=== PATIENT | male | born 1940 | race Caucasian/White ===

== ENCOUNTER → 2017-09-10 | Outpatient (CLI) | payer OTHER ==
[~2017-09-10] MED LIST: ALDACTONE25 MG PO; ALLOPURINOL 10100 M1 PO; ASPIRIN325 PO; BYSTOLIC 5 MG5 MG PO; BYSTOLIC10 MG PO; COREG12.5 MG PO; COZAAR 25 MG TA25 M1 PO; COZAAR 25 MG TA25 MG PO; COZAAR 50 MG TA50 M2 PO; DEMADEX20 MG PO; KLOR-CON 1010 MEQ PO; LASIX 40 MG TAB40 M2 PO; ONE DAILY FOR1 EAC2 PO; ONE DAILY FOR1 EACH PO; PACERONE 200 M200 M1 PO; TYLENOL325 MG PO
== END ==
LOC: HYPER 06:40
DX: L03.116 Cellulitis of left lower limb (principal); L03.115 Cellulitis of right lower limb; I50.22 Chronic systolic (congestive) heart failure; N18.4 Chronic kidney disease, stage 4 (severe); M19.90 Unspecified osteoarthritis, unspecified site; Z95.0 Presence of cardiac pacemaker; Z87.891 Personal history of nicotine dependence

== ENCOUNTER 2017-09-21 13:41 | Inpatient (IN) | payer OTHER ==
[~2017-09-21] VITALS: Ht 177.8 cm; Wt 99.0 kg
--- NOTE | ~2017-09-21 | HC ---
[facility] [place] [address] CONSULTATION Name: TANK COX Room #: 432-P ADM IN M.R.#: [id number] Admission: 09/21/17 Attend Phys: Darion Jose MD Discharge: Date of : 41 Report #: [id number] THIS REPORT FOR: //name// CC: Dwaine Jose REASON FOR CONSULTATION: Acute kidney injury. HISTORY OF PRESENT ILLNESS: This is a 77-year-old with known ischemic cardiomyopathy and an ejection fraction of 20%. He is also known to have cardiorenal syndrome. He presented to the emergency room yesterday after a fall. This has happened on Thursday. His baseline creatinine used to be around 2. He was supposed to be seen in the clinic. His creatinine has been creeping up all the way to mid-5 range with aggressive diuresis. When he presented yesterday, he was found to have a creatinine of 7. He reported to taking doxycycline and ibuprofen in the last few days. He does have bilateral lower extremity edema with extensive cellulitic changes. We have tried to avoid dialysis in the past; however, he is agreeable to pursuing that. I explained for him that this could be temporary. PAST MEDICAL HISTORY: 1. Hypertension. 2. Heart failure with ejection fraction of 20%. 3. Status post pacemaker insertion. MEDICATIONS: 1. . 2. Aspirin. 3. Spironolactone. 4. Torsemide. 5. Colchicine. 6. Recent ibuprofen ingestions. SOCIAL HISTORY: No drug or alcohol abuse. FAMILY HISTORY: Significant for coronary artery disease. REVIEW OF SYSTEMS: GENERAL: No fever or chills. CARDIOVASCULAR: No chest pain or palpitation. PULMONARY: No cough or hemoptysis. GASTROINTESTINAL: No nausea or vomiting. GENITOURINARY: No frequency, no urgency. MUSCULOSKELETAL: Shoulder pain post fall. SKIN: Significant for lower extremity cellulitic changes. PHYSICAL EXAMINATION: [facility] [address] [place] [address] CONSULTATION Name: TANK COX Room #: 432-P [facility] IN [facility]#: [id number] Admission: 09/21/17 Attend Phys: Darion Jose MD Discharge: Date of : 41 Report #: [id number] GENERAL: He is alert, oriented, in no apparent distress. VITAL SIGNS: Blood pressure is 102/57. HEAD AND NECK: No jugular venous distention. No bruit or thyromegaly. CHEST: Decreased air entry bilaterally, with crackles. CARDIOVASCULAR: No rub detected. ABDOMEN: Soft, nontender with no hepatosplenomegaly. EXTREMITIES: Lower extremities significant for edema and cellulitic changes. LABORATORY DATA: Laboratory values reviewed. Sodium 130, potassium 3.4. BUN is 203, down from 212; creatinine is ____. AST is elevated at 311. ALT is elevated at 375. ASSESSMENT, IMPRESSION AND PLAN: 1. Acute kidney injury. 2. Chronic kidney disease. 3. Cardiomyopathy. 4. Status post fall. 5. The acute kidney injury is likely due to his recent nonsteroidal anti-inflammatory medications intake. His baseline creatinine is around 2.2. Given his volume issues and the significant elevation of his BUN, we will initiate temporary dialysis. 6. Avoid nephrotoxins. 7. Management of his fall deferred to primary care physicians. 8. Management of the cardiac issues will be handled by his Cardiology team. <ELECTRONICALLY SIGNED> By: Zbigniew Carl MD 09/23/17 0817 0836 1200 Zbigniew Carl MD /nt
--- NOTE | ~2017-09-21 | 2DMMODE ---
[facility] [address] [place] [address] 2 D/M-MODE ECHOCARDIOGRAM Name: TANK COX Room #: 432-P [facility] IN ..#: [id number] Admission: 09/21/17 Attend Phys: Darion Jose, Discharge: Date of : 42 Date of Service: 09/22/17 1057 Report #: [id number] THIS REPORT FOR: //name// ADDENDUM APPROVED REPORT Study performed: 09/22/2017 09:59:44 EXAM: Comprehensive 2D, Doppler, and color-flow Echocardiogram Patient Location: Bedside Room #: 432 Status: routine BSA: 2.18 HR: 77 bpm BP: 102/57 mmHg Rhythm: Paced Other Information Study Quality: Adequate Indications Elevated BNP. Hx: Pacemaker, cardiomyopathy, CHF, HTN 2D Dimensions RVDd: 45.11 mm LVEF(%): 27.96 (>50%) IVSd: 11.14 (7-11mm) LVOT Diam: 21.91 (18-24mm) LVDd: 62.56 mm PWd: 10.96 (7-11mm) Ascending Ao: 35.66 (22-36mm) LVDs: 54.22 (25-40mm) Aortic Root: 40.31 mm Cosme's LVEF: 27.96 % Volumes Left Atrial Volume (Systole) Single Plane 4CH: 82.89 mL Single Plane 2CH: 113.05 mL LA ESV Index: 49.00 mL/m2 Aortic Valve AoV Peak Piero.: 1.75 m/s AO Peak Gr.: 12.25 mmHg LVOT Max P.46 mmHg LVOT Max V: 1.17 m/s RADHA Vmax: 2.51 cm2 Mitral Valve E/A Ratio: 1.5 MV Decel. Time: 126.25 ms [facility] Timeline [facility] / [place] [address] 2 D/M-MODE ECHOCARDIOGRAM Name: TANK COX Room #: 432-P [facility] IN ..#: [id number] Admission: 09/21/17 Attend Phys: Darion Jose, Discharge: Date of : 42 Date of Service: 09/22/17 1057 Report #: [id number] E Max Piero.: 1.15 m/s MV A Piero.: 0.79 m/s MV PHT: 36.61 ms IVRT: 62.28 ms Pulmonary Valve PV Peak Piero.: 0.89 m/s PV Peak Gr.: 3.19 mmHg Pulmonary Vein P Vein S: 0.65 m/s P Vein D: 0.71 m/s P Vein S/D Ratio: 0.92 Tricuspid Valve TR Peak Piero.: 3.15 m/s RAP Estimate: 5.00 mmHg TR Peak Gr.: 39.75 mmHg PA Pressure: 45.00 mmHg Left Ventricle Left ventricle is moderately dilated. There is normal left ventricular wall thickness. Left ventricular systolic function is moderate to severely decreased. LVEF is 30%.inf wall akinetic Moderate diastolic dysfunction is present (pseudonormal filling). Right Ventricle Right ventricle is dilated. Right ventricle is mildly hypokinetic. Pacemaker lead is present in the right ventricle. Atria Left atrium is moderately dilated. Right atrium is mildly dilated. Aortic Valve Aortic valve is calcified. Mild aortic regurgitation. There is no aortic valvular stenosis. Mitral Valve The mitral valve is normal in structure. Mild mitral annular calcification. Moderate mitral regurgitation. No evidence of mitral valve stenosis. Tricuspid Valve The tricuspid valve is normal in structure. Mild tricuspid regurgitation. Estimated PAP is 45-50mmHg. [address] [address] 2 D/M-MODE ECHOCARDIOGRAM Name: BROOKETANK Dorcas Room #: 432-P [facility] IN [facility]#: [id number] Admission: 09/21/17 Attend Phys: Darion Jose, Discharge: Date of : 42 Date of Service: 09/22/17 1057 Report #: [id number] Pulmonic Valve The pulmonary valve is normal in structure. Trace pulmonic regurgitation. Great Vessels Aortic root is dilated at 4.0cm. The ascending aorta is normal in size. IVC is normal in size and collapses >50% with inspiration. Pericardium There is no pericardial effusion. <Conclusion> Left ventricle is moderately dilated. Left ventricular systolic function is moderate to severely decreased. LVEF is25- 30%.inf walll worse Moderate diastolic dysfunction is present (pseudonormal filling). Right ventricle is dilated. Right ventricle is mildly hypokinetic. Left atrium is moderately dilated. Right atrium is mildly dilated. Aortic valve is calcified. Mild aortic regurgitation. The mitral valve is normal in structure. Mild mitral annular calcification. Moderate mitral regurgitation. Mild tricuspid regurgitation. Estimated PAP is 45-50mmHg. Aortic root is dilated at 4.0cm. There is no pericardial effusion. no signif change from prior <ELECTRONICALLY SIGNED> By: Holland Young MD, FACC 09/22/171056 56 56 Holland Young MD, FACC /INF
[2017-09-21 13:41] VITALS: BP 101/46
[2017-09-21] MEDS ORDERED: COLCHICINE0.6 MG PO (13:55)
[2017-09-21] MEDS ORDERED: TUMERIC PO (13:56)
[2017-09-21] MEDS ORDERED: DEMADEX20 MG PO (13:57)
[2017-09-21 15:03] LABS: MCH 31.3 pg (26.0-34.0); MCHC 33.3 g/dL (28.0-37.0); PLATELET COUNT 221 thou/uL (150-400); RBC 3.51 mil/uL (4.50-6.00); RDW 17.6 % (10.5-14.5); WBC 17.4 thou/uL (4.0-11.0)
[2017-09-21 15:14] LABS: CALCIUM 9.1 mg/dL (8.5-10.1); CREATININE 7.4 mg/dL (0.7-1.3); POTASSIUM 3.3 mmol/L (3.5-5.1)
[2017-09-21 15:16] LABS: ALBUMIN 2.5 g/dL (3.4-5.0); TOTAL BILIRUBIN 2.3 mg/dL (<0.1-1.0); TOTAL PROTEIN 7.2 g/dL (6.4-8.2)
[2017-09-21 15:24] LABS: ABSOLUTE NEUTROPHILS 15.8 thou/uL (1.4-8.2)
[2017-09-21 15:25] LABS: ANISOCYTOSIS 1+; LARGE PLATELETS SEVERAL; OVALOCYTES OCCASIONAL; TARGET CELLS OCCASIONAL
[2017-09-21 15:39] LABS: INR 1.2
[2017-09-21 15:52] LABS: URINE BILIRUBIN NEGATIVE (Negative); URINE BLOOD TRACE (Negative); URINE CLARITY CLEAR; URINE COLOR YELLOW; URINE GLUCOSE-RANDOM* NEGATIVE (Negative); URINE KETONES NEGATIVE (Negative); URINE LEUKOCYTES-REFLEX NEGATIVE (Negative); URINE NITRITE-REFLEX NEGATIVE (Negative); URINE PROTEIN (DIPSTICK) NEGATIVE (Negative); URINE SPECIFIC GRAVITY 1.015 (1.005-1.035); URINE UROBILINOGEN 0.2 E.U./dl (0.2-1.0)
[2017-09-21 16:52] VITALS: BP 104/68
[2017-09-21 17:40] VITALS: BP 104/68
[2017-09-21 19:35] VITALS: BP 109/44
[2017-09-21 23:40] VITALS: BP 100/54
[2017-09-22 04:14] VITALS: BP 94/49
[2017-09-22 05:32] LABS: HEMATOCRIT 32.1 % (42.0-52.0); HEMOGLOBIN 10.5 gm/dL (14.0-18.0); MCH 30.8 pg (26.0-34.0); MCHC 32.7 g/dL (28.0-37.0); MCV 94.3 fL (80.0-100.0); RDW 17.8 % (10.5-14.5)
[2017-09-22 05:50] LABS: ALBUMIN 2.1 g/dL (3.4-5.0); CALCIUM 8.9 mg/dL (8.5-10.1); CREATININE 6.8 mg/dL (0.7-1.3); MAGNESIUM 2.6 mg/dL (1.8-2.4); POTASSIUM 3.4 mmol/L (3.5-5.1); TOTAL BILIRUBIN 2.7 mg/dL (<0.1-1.0); TOTAL PROTEIN 6.4 g/dL (6.4-8.2)
[2017-09-22 07:05] VITALS: BP 102/57
[2017-09-22 07:22] LABS: ABSOLUTE NEUTROPHILS 14.6 thou/uL (1.4-8.2)
[2017-09-22 07:23] LABS: ANISOCYTOSIS 1+; HYPOCHROMASIA SLIGHT; OVALOCYTES 1+; POIKILOCYTOSIS 1+; POLYCHROMASIA 1+; TARGET CELLS OCCASIONAL
[2017-09-22 07:33] LABS: LARGE PLATELETS FEW; PLATELET COUNT 236 thou/uL (150-400)
[2017-09-22 15:25] VITALS: BP 98/54
[2017-09-22 20:43] VITALS: BP 106/50
[2017-09-22 23:54] VITALS: BP 108/54
[2017-09-23 04:37] VITALS: BP 96/47
[2017-09-23 05:35] LABS: CALCIUM 9.5 mg/dL (8.5-10.1); PHOSPHORUS 3.9 mg/dL (2.5-4.9); POTASSIUM 3.2 mmol/L (3.5-5.1)
[2017-09-23 05:36] LABS: CREATININE 4.4 mg/dL (0.7-1.3)
[2017-09-23 05:48] LABS: HEMATOCRIT 33.9 % (42.0-52.0); HEMOGLOBIN 11.2 gm/dL (14.0-18.0); MCH 31.4 pg (26.0-34.0); MCHC 33.2 g/dL (28.0-37.0); MCV 94.6 fL (80.0-100.0); RBC 3.58 mil/uL (4.50-6.00); RDW 18.2 % (10.5-14.5)
[2017-09-23 07:30] VITALS: BP 104/49
[2017-09-23 10:08] LABS: HEPATITIS B SURFACE AG Negative (Negative)
[2017-09-23 15:32] VITALS: BP 83/48
[2017-09-23 20:00] VITALS: BP 91/52
[2017-09-24 04:04] VITALS: BP 109/59
[2017-09-24 10:33] LABS: HEMATOCRIT 33.5 % (42.0-52.0); HEMOGLOBIN 10.8 gm/dL (14.0-18.0); MCHC 32.3 g/dL (28.0-37.0); MCV 95.9 fL (80.0-100.0); PLATELET COUNT 248 thou/uL (150-400); RDW 17.8 % (10.5-14.5); WBC 11.9 thou/uL (4.0-11.0)
[2017-09-24 10:42] LABS: CALCIUM 8.8 mg/dL (8.5-10.1); CREATININE 3.4 mg/dL (0.7-1.3); POTASSIUM 3.4 mmol/L (3.5-5.1)
[2017-09-24 10:49] LABS: ABSOLUTE NEUTROPHILS 10.6 thou/uL (1.4-8.2); LARGE PLATELETS FEW; PLATELET ESTIMATE NORMAL
[2017-09-24 19:54] VITALS: BP 122/58
[2017-09-25 04:52] VITALS: BP 107/52
[2017-09-25 05:23] LABS: ALBUMIN 1.9 g/dL (3.4-5.0); CALCIUM 8.7 mg/dL (8.5-10.1); CREATININE 3.4 mg/dL (0.7-1.3); PHOSPHORUS 2.7 mg/dL (2.5-4.9)
[2017-09-25 05:37] LABS: POTASSIUM 4.4 mmol/L (3.5-5.1)
[2017-09-25 08:01] VITALS: BP 127/53
[2017-09-25 16:32] VITALS: BP 114/58
[2017-09-25 19:45] VITALS: BP 104/58
[2017-09-26 03:42] LABS: HEMATOCRIT 33.5 % (42.0-52.0); HEMOGLOBIN 11.1 gm/dL (14.0-18.0); MCH 31.5 pg (26.0-34.0); MCHC 33.1 g/dL (28.0-37.0); MCV 95.1 fL (80.0-100.0); RBC 3.53 mil/uL (4.50-6.00); RDW 17.9 % (10.5-14.5); WBC 11.7 thou/uL (4.0-11.0)
[2017-09-26 03:53] LABS: ALBUMIN 1.9 g/dL (3.4-5.0); CREATININE 3.6 mg/dL (0.7-1.3); POTASSIUM 4.1 mmol/L (3.5-5.1); TOTAL BILIRUBIN 4.1 mg/dL (<0.1-1.0); TOTAL PROTEIN 6.5 g/dL (6.4-8.2)
[2017-09-26 04:20] VITALS: BP 105/51
[2017-09-26 07:35] VITALS: BP 110/61
[2017-09-26 20:15] VITALS: BP 96/45
[2017-09-27 04:32] VITALS: BP 103/53
[2017-09-27 06:55] LABS: HEMATOCRIT 32.7 % (42.0-52.0); HEMOGLOBIN 10.8 gm/dL (14.0-18.0); MCH 31.4 pg (26.0-34.0); MCHC 33.1 g/dL (28.0-37.0); MCV 94.7 fL (80.0-100.0); RBC 3.46 mil/uL (4.50-6.00); RDW 17.7 % (10.5-14.5); WBC 11.6 thou/uL (4.0-11.0)
[2017-09-27 07:13] LABS: ALBUMIN 1.9 g/dL (3.4-5.0); CREATININE 3.6 mg/dL (0.7-1.3); PHOSPHORUS 3.4 mg/dL (2.5-4.9); POTASSIUM 3.9 mmol/L (3.5-5.1)
[2017-09-27 09:06] VITALS: BP 92/42
[2017-09-27 19:59] VITALS: BP 104/56
[2017-09-28 03:20] VITALS: BP 166/63
[2017-09-28 04:10] VITALS: BP 123/53
[2017-09-28 06:12] LABS: HEMATOCRIT 31.7 % (42.0-52.0); HEMOGLOBIN 10.6 gm/dL (14.0-18.0); MCH 31.7 pg (26.0-34.0); MCHC 33.6 g/dL (28.0-37.0); MCV 94.3 fL (80.0-100.0); RBC 3.36 mil/uL (4.50-6.00); WBC 12.8 thou/uL (4.0-11.0)
[2017-09-28 06:29] LABS: ALBUMIN 1.8 g/dL (3.4-5.0); CALCIUM 8.8 mg/dL (8.5-10.1); CREATININE 3.6 mg/dL (0.7-1.3); PHOSPHORUS 3.9 mg/dL (2.5-4.9); POTASSIUM 3.7 mmol/L (3.5-5.1)
[2017-09-28 06:43] VITALS: BP 123/53
[2017-09-28 08:37] VITALS: BP 103/41
[2017-09-28 16:09] VITALS: BP 108/84
[2017-09-28 19:36] VITALS: BP 103/49
[2017-09-29 04:05] VITALS: BP 117/60
[2017-09-29 07:23] VITALS: BP 106/45
[2017-09-29 09:00] VITALS: BP 93/42
[2017-09-29 11:18] VITALS: BP 93/42
[2017-09-29 11:50] LABS: HEMOGLOBIN 10.8 gm/dL (14.0-18.0); MCH 32.6 pg (26.0-34.0); MCHC 33.8 g/dL (28.0-37.0); MCV 96.3 fL (80.0-100.0); RBC 3.32 mil/uL (4.50-6.00); RDW 18.1 % (10.5-14.5); WBC 12.7 thou/uL (4.0-11.0)
[2017-09-29 12:04] LABS: ALBUMIN 1.8 g/dL (3.4-5.0); CALCIUM 8.5 mg/dL (8.5-10.1); CREATININE 3.5 mg/dL (0.7-1.3); MAGNESIUM 1.8 mg/dL (1.8-2.4); POTASSIUM 3.8 mmol/L (3.5-5.1); TOTAL BILIRUBIN 2.3 mg/dL (<0.1-1.0); TOTAL PROTEIN 6.5 g/dL (6.4-8.2)
[2017-09-29] MEDS ORDERED: AMLACTIN400 GM TOP (13:00)
[2017-09-29] MEDS ORDERED: HEPARIN SO5000 UNIT/ SUBQ (13:00)
[2017-09-29] MEDS ORDERED: NITROGLYCERIN0.4 MG SUBLING (13:00)
[2017-09-29] MEDS ORDERED: MIRALAX17 GM PO (13:00)
[2017-09-29] MEDS ORDERED: DEMADEX20 MG PO (13:00)
[2017-09-29] MEDS ORDERED: CEFUROXIME500 MG PO (13:32)
== END 2017-09-29 16:50 | DRG 673 ==
LOC: ER 13:41 → 4E 16:23 → EROBS 16:23 → 4E 18:28
PROVIDERS: Hospitalist; Internal Medicine; Internal Medicine Nephrology; Nurse Practitioner; Physician Assistant
PROC: 2W3AX1Z Immobilization of Right Upper Arm using Splint (ICD-10-PCS; principal; 2017-09-21)
PROC: B5181ZA Fluoroscopy of Superior Vena Cava using Low Osmolar Contrast, Guidance (ICD-10-PCS; 2017-09-22)
PROC: 02HV33Z Insertion of Infusion Device into Superior Vena Cava, Percutaneous Approach (ICD-10-PCS; 2017-09-22)
PROC: 0JH63XZ Insertion of Tunneled Vascular Access Device into Chest Subcutaneous Tissue and Fascia, Percutaneous Approach (ICD-10-PCS; 2017-09-22)
PROC: B548ZZA Ultrasonography of Superior Vena Cava, Guidance (ICD-10-PCS; 2017-09-22)
PROC: 5A1D70Z Performance of Urinary Filtration, Intermittent, Less than 6 Hours Per Day (ICD-10-PCS; 2017-09-22)
PROC: 5A1D70Z Performance of Urinary Filtration, Intermittent, Less than 6 Hours Per Day (ICD-10-PCS; 2017-09-23)
PROC: 5A1D70Z Performance of Urinary Filtration, Intermittent, Less than 6 Hours Per Day (ICD-10-PCS; 2017-09-24)
DX: N17.0 Acute kidney failure with tubular necrosis (principal); G93.41 Metabolic encephalopathy; I50.23 Acute on chronic systolic (congestive) heart failure; E87.1 Hypo-osmolality and hyponatremia; E44.0 Moderate protein-calorie malnutrition; I42.9 Cardiomyopathy, unspecified; M62.82 Rhabdomyolysis; L03.116 Cellulitis of left lower limb; L03.115 Cellulitis of right lower limb; B19.10 Unspecified viral hepatitis B without hepatic coma; I13.2 Hypertensive heart and chronic kidney disease with heart failure and with stage 5 chronic kidney disease, or end stage renal disease; M10.9 Gout, unspecified; E87.6 Hypokalemia; M19.011 Primary osteoarthritis, right shoulder; S40.011A Contusion of right shoulder, initial encounter; N18.6 End stage renal disease; L30.9 Dermatitis, unspecified; R26.9 Unspecified abnormalities of gait and mobility; S46.011A Strain of muscle(s) and tendon(s) of the rotator cuff of right shoulder, initial encounter; T39.395A Adverse effect of other nonsteroidal anti-inflammatory drugs [NSAID], initial encounter; W18.39XA Other fall on same level, initial encounter; Y93.89 Activity, other specified; Y99.8 Other external cause status; Y92.89 Other specified places as the place of occurrence of the external cause; Z95.810 Presence of automatic (implantable) cardiac defibrillator; Z87.891 Personal history of nicotine dependence; Z79.82 Long term (current) use of aspirin; Z79.899 Other long term (current) drug therapy; Z23 Encounter for immunization; Z88.8 Allergy status to other drugs, medicaments and biological substances; Z82.49 Family history of ischemic heart disease and other diseases of the circulatory system
CPT/HCPCS: 10183; 32100

== ENCOUNTER → 2017-10-21 | Outpatient (CLI) | payer OTHER ==
[~2017-10-21] MED LIST changes: +AMLACTIN400 GM TOP; +CEFUROXIME500 MG PO; +COLCHICINE0.6 MG PO; +HEPARIN SO5000 UNIT/ SUBQ; +MIRALAX17 GM PO; +NITROGLYCERIN0.4 MG SUBLING; +TUMERIC PO
== END ==
LOC: HYPER 09-23 10:19
DX: L03.116 Cellulitis of left lower limb (principal); L03.115 Cellulitis of right lower limb; N18.4 Chronic kidney disease, stage 4 (severe); I50.22 Chronic systolic (congestive) heart failure; M19.90 Unspecified osteoarthritis, unspecified site; Z87.891 Personal history of nicotine dependence; Z95.0 Presence of cardiac pacemaker

== ENCOUNTER → 2017-11-11 | Outpatient (CLI) | payer OTHER | LOC: HYPER 06:57 | DX: L03.116 Cellulitis of left lower limb (principal); L03.115 Cellulitis of right lower limb; I50.22 Chronic systolic (congestive) heart failure; N18.4 Chronic kidney disease, stage 4 (severe); M19.90 Unspecified osteoarthritis, unspecified site; Z95.0 Presence of cardiac pacemaker; Z87.891 Personal history of nicotine dependence ==

== ENCOUNTER → 2017-11-23 | Outpatient (CLI) | payer OTHER | LOC: HYPER 06:52 | DX: S81.801D Unspecified open wound, right lower leg, subsequent encounter (principal); S81.802D Unspecified open wound, left lower leg, subsequent encounter; L03.116 Cellulitis of left lower limb; L03.115 Cellulitis of right lower limb; N18.4 Chronic kidney disease, stage 4 (severe); I50.22 Chronic systolic (congestive) heart failure; M19.90 Unspecified osteoarthritis, unspecified site; M10.9 Gout, unspecified; Z95.0 Presence of cardiac pacemaker; Z87.891 Personal history of nicotine dependence; X58.XXXD Exposure to other specified factors, subsequent encounter ==

== ENCOUNTER 2017-12-31 15:51 | Inpatient (IN) | payer OTHER ==
[~2017-12-31] VITALS: Ht 188 cm; Wt 92.6 kg
--- NOTE | ~2017-12-31 | HC ---
[facility] [place] [address] CONSULTATION Name: BROOKETANK Dorcas Room #: 213-P [facility] IN ..#: [id number] Admission: 12/31/17 Attend Phys: Sherine Hernandes Discharge: 01/05/18 Date of : 41 Report #: [id number] THIS REPORT FOR: //name// CC: Dwaine Hernandes DATE OF SERVICE: 01/01/2018 CHIEF COMPLAINT: Bilateral lower extremity ulcerations. HISTORY OF PRESENT ILLNESS: This is a 77-year-old male patient who has been seen in the wound clinic in the past. He has a history of congestive heart failure, bilateral lower extremity edema. He has bilateral compression bandages in place at this time. The patient denies pain, states he does not have any open wounds. He is reluctant to have his wrappings taken off. CURRENT MEDICATIONS: Include amiodarone, ammonium lactate, cefuroxime, heparin, nitroglycerin, polyethylene glycol, spironolactone, torsemide. ALLERGIES: NOY INHIBITORS AND CARVEDILOL. FAMILY HISTORY: Noncontributory. SOCIAL HISTORY: Positive for cigarettes in the past. Negative for alcohol use. REVIEW OF SYSTEMS: CONSTITUTIONAL: The patient denies fever, chills, weight loss. NEUROLOGICAL: The patient denies focal weakness. ENT: The patient denies earache, nasal drainage or sore throat. CARDIOVASCULAR: The patient denies chest pain or palpitations or diaphoresis. PULMONARY: The patient denies cough or shortness of breath. GASTROINTESTINAL: The patient denies nausea or vomiting, diarrhea or abdominal pain. ORTHOPEDIC: The patient has his lower extremities wrapped, denies pain in that area. Other systems are negative in a 14-point review of systems. PHYSICAL EXAMINATION: VITAL SIGNS: At this time include pulse 66, respiratory rate of 22, temperature 97.6, blood pressure 100/64. GENERAL: This is a chronically ill-appearing male patient who appears to be in minimal distress. HEENT: Head is normocephalic. Nose and throat clear. NECK: Supple. LUNGS: Clear. ABDOMEN: Soft. [facility] [address] [place] [address] CONSULTATION Name: TANK COX Room #: 213-P [facility] IN M.R.#: [id number] Admission: 12/31/17 Attend Phys: Sherine Hernandes Discharge: 01/05/18 Date of : 41 Report #: [id number] EXTREMITIES: Lower extremities demonstrate skin to be warm, pink, and dry. Wraps are removed. He has minimal edema, really no open ulcerations, or evidence of cellulitis at this time. CLINICAL IMPRESSION: History of bilateral lower extremity edema that seems to be well controlled. RECOMMENDATIONS: We will recommend topical moisturizer such as Eucerin or AmLactin cream followed by Tubigrip stockings bilaterally. These can be changed out on a daily basis. Recommend elevation of lower extremities. I appreciate being asked to see him in consultation. <ELECTRONICALLY SIGNED> By: Talat Ford MD 01/07/18 1516 1202 2123 Talat Ford MD /nt
--- NOTE | ~2017-12-31 | EKG ---
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: SUSANA : 1940 Requested By: María Rdz Order Number: [id number] MD: Hero Powell Measurements Intervals [place] Rate: 82 P: 61 ND: 160 QRS: 242 QRSD: 219 T: 169 QT: 505 QTc: 590 Interpretive Statements Atrial-sensed ventricular-paced rhythm No further analysis attempted due to paced rhythm Artifact in lead(s) I,II,aVR,aVL Compared to ECG 11/15/2015 07:49:10 No significant change was found Electronically Signed On 01-01-2018 8:49:06 CDT by Hero Powell [email or web address] <ELECTRONICALLY SIGNED> By: Hero Powell MD, [facility] 01/01/18 0849 1604 1604 Hero Powell MD, [facility] /EPI
--- NOTE | ~2017-12-31 | HC ---
[facility] [place] [address] CONSULTATION Name: BROOKETANK Dorcas Room #: 213-P [facility] IN .R.#: [id number] Admission: 12/31/17 Attend Phys: Sherine Hernandes Discharge: Date of : 41 Report #: [id number] THIS REPORT FOR: //name// CC: Dwaine Hernandes DATE OF SERVICE: 01/01/2018 REASON FOR THE CONSULTATION: Chronic kidney disease. REASON FOR PRESENTATION: Shortness of breath. HISTORY OF PRESENT ILLNESS: The patient was seen and examined on December, this is a late dictation. The patient is well known to me. He has chronic kidney disease with a baseline creatinine of around 2.0. He has advanced cardiomyopathy. He sees Dr. Powell. Remotely, he had history of severe nonischemic cardiomyopathy, status post pacemaker insertion. He goes into episodes of fluid overload, requiring aggressive diuresis. At one point, his diuresis has resulted in acute kidney injury and the patient required temporary dialysis. After the temporary dialysis, his kidney function has stabilized and his creatinine was back to baseline of around 2.0. He was maintained on torsemide as an outpatient. He stated that he has been compliant with his diet. He suffers from bilateral lower extremity cellulitis and is followed by the wound care for that. His kidney disease is related to his cardiomyopathy with a bland urine. I am being asked to evaluate and assist with the diuresis and chronic kidney disease. PAST MEDICAL HISTORY: 1. Severe nonischemic cardiomyopathy. 2. Chronic kidney disease. 3. Hypotension. 4. Cellulitis, bilateral lower extremities. 5. Recent history of acute kidney injury, requiring hemodialysis. PAST SURGICAL HISTORY: 1. IJ tunneled catheter placement. 2. ICD placement. MEDICATIONS: 1. Amiodarone. 2. Aldactone. 3. Torsemide. 4. Nitroglycerin. SOCIAL HISTORY: No drug or alcohol abuse. He is disabled. [facility] [address] [place] [address] CONSULTATION Name: TANK COX Room #: 213-P [facility] IN [facility]#: [id number] Admission: 12/31/17 Attend Phys: Sherine Hernandes Discharge: Date of : 41 Report #: [id number] FAMILY HISTORY: Significant for hypertension and heart disease. REVIEW OF SYSTEMS: CONSTITUTIONAL: No fever or chills. CARDIOVASCULAR: Significant for weight gain and lower extremity swelling and shortness of breath. PULMONARY: No cough or hemoptysis. GASTROINTESTINAL: No nausea or vomiting. GENITOURINARY: No decrease in the urine output. PHYSICAL EXAMINATION: GENERAL: He is alert and oriented. VITAL SIGNS: Temperature 36.4, blood pressure 104/69 and pulse rate is 60. HEAD AND NECK: No jugular venous distention. CHEST: Decreased air entry bilaterally with crackles. CARDIOVASCULAR: No rub detected. ABDOMEN: Soft and nontender. LOWER EXTREMITIES: NOY wraps applied bilaterally. LABORATORY DATA: Laboratory values reviewed. Hemoglobin 11.1. BUN 33 and creatinine 2.3. RADIOLOGICAL DATA: Chest x-ray reviewed, significant pulmonary edema and effusion. ASSESSMENT, IMPRESSION AND PLAN: 1. Decompensated heart failure. 2. Pulmonary edema. 3. Pleural effusion. 4. Chronic kidney disease. 5. Ventricular tachycardia. 6. Nonischemic cardiomyopathy. 7. Renally, he seems to be at his baseline; however, he is definitely fluid overloaded given his chest x-ray finding and the lower extremity edema. We would continue with the Lasix twice a day for now. Might escalate the dose or even switch to Lasix drip. 8. Continue with the spironolactone. 9. Fluid and salt restriction. 10. Daily body weight. 11. Strict input and output. 12. We will continue to follow along. By: 0819 2213 Zbigniew Carl MD /nt
--- NOTE | ~2017-12-31 | HC ---
[facility] [place] [address] CONSULTATION Name: BROOKETANK Dorcas Room #: 213-P [facility] IN ..#: [id number] Admission: 12/31/17 Attend Phys: Sherine Hernandes Discharge: Date of : 41 Report #: [id number] THIS REPORT FOR: //name// CC: Dwaine Hernandes DATE OF SERVICE: 12/31/2017 HISTORY OF PRESENT ILLNESS: The patient is a 77-year-old gentleman with severe nonischemic cardiomyopathy, congestive heart failure, and advanced chronic kidney disease. Coronary angiography at the time of his current cardiomyopathy diagnosis in 2013 was notable for the absence of coronary artery disease. In 2016, he presented with sustained ventricular tachycardia, requiring emergent defibrillation while shopping at [employer]. He underwent placement of a [employer]ia biventricular pacemaker. Therapy with amiodarone was initiated. He now presents with progressive lower extremity edema. He had been on dialysis previously with only 3 dialysis treatments with improvement in his kidney function. Recently, he has had increasing shortness of breath and weeping lower extremity edema. Denies chest pain, pressure, orthopnea or paroxysmal nocturnal dyspnea. No history of near syncope or syncope. He has had no symptoms to suggest ICD discharge. His appetite has been very poor. HOME MEDICATIONS: Include amiodarone 200 mg twice daily, Aldactone 25 mg daily, aspirin 81 mg daily, torsemide 60 mg daily, allopurinol 150 mg daily. PAST MEDICAL HISTORY: Notable for chronic renal insufficiency, hypertension, dyslipidemia, class 2-3 heart failure, paroxysmal ventricular tachycardia, prior [employer] Elia Bi-V ICD placement in 11/2015. He has an intolerance to NOY INHIBITORS and carvedilol. SOCIAL HISTORY: Former smoker. . FAMILY HISTORY: Notable for a younger daughter with a pacemaker and cardiomyopathy. REVIEW OF SYSTEMS: All systems negative except as that noted above. PHYSICAL EXAMINATION: GENERAL: A pleasant gentleman, is alert and in no distress. VITAL SIGNS: Blood pressure is 117/76, heart rate of 93 and regular. He is afebrile, 6 feet 2 inches tall, 208 pounds. HEENT: There are neither xanthelasma, subcutaneous xanthomata, oral mucosal or digital cyanosis or kyphoscoliosis present. CHEST: Reveals a few bibasilar rales. CARDIAC: Regular rate and rhythm with normal S1, S2. there is 2/ systolic [facility] [address] [place] [address] CONSULTATION Name: TANK COX Dorcas Room #: 213-P [facility] IN ..#: [id number] Admission: 12/31/17 Attend Phys: Sherine Hernandes Discharge: Date of : 42 Report #: [id number] murmur at the left sternal border. ABDOMEN: Soft and nontender. EXTREMITIES: Without cyanosis or clubbing, 1 to 2+ pitting edema. NEUROLOGIC: He is alert with a nonfocal exam. LABORATORY DATA: Sodium 144, potassium 3.4, creatinine 2.1. His creatinine May of this year was 3.5. ProBNP of 21,000. Troponin of 0. White count 5.9, hemoglobin 11, hematocrit 34, platelet count 288. IMAGING DATA: Chest x-rays demonstrates cardiomegaly, bilateral lower lobe infiltrates versus edema. IMPRESSION: 1. Severe nonischemic cardiomyopathy. 2. History of sustained ventricular tachycardia with prior Bi-V implantable cardioverter defibrillator placement ([employer]ia), acute on chronic systolic heart failure. 3. Advanced kidney disease (stage 4). 4. Hypertension. 5. Dyslipidemia. RECOMMENDATIONS: 1. IV Lasix. 2. Renal consultation. Dr. Carl has been managing his outpatient diuretic regimen. 3. Continued use of amiodarone for suppression of ventricular tachycardia. <ELECTRONICALLY SIGNED> By: Hero Powell MD, [facility] 01/04/18 1446 0746 0827 Hero Powell MD, FACC /nt
--- NOTE | ~2017-12-31 | EKG ---
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
[2017-12-31 15:55] VITALS: BP 115/73
[2017-12-31 16:26] LABS: BE(vivo) 0.4 mmol/L (-2 to +3); HCO3 23.8 mmol/L (22.0-26.0); PCO2 34.1 mmHg (35.0-45.0); PO2 71.5 mmHg (80.0-100.0); pH 7.462 (7.360-7.450); sO2 95.3 % (92.0-98.0)
[2017-12-31 16:49] LABS: ABSOLUTE NEUTROPHILS 4.6 thou/uL (1.4-8.2); BASOPHILS 1.3 % (0.0-2.0); EOSINOPHILS 1.2 % (0.0-3.0); HEMATOCRIT 34.7 % (42.0-52.0); HEMOGLOBIN 11.1 gm/dL (14.0-18.0); LYMPHOCYTES 9.4 % (24.0-44.0); MCV 93.9 fL (80.0-100.0); MONOCYTES 10.1 % (1.0-8.0); PLATELET COUNT 288 thou/uL (150-400); RBC 3.69 mil/uL (4.50-6.00); RDW 19.5 % (10.5-14.5); WBC 5.9 thou/uL (4.0-11.0)
[2017-12-31 16:58] LABS: CALCIUM 9.3 mg/dL (8.5-10.1); CREATININE 2.4 mg/dL (0.7-1.3); POTASSIUM 3.4 mmol/L (3.5-5.1)
[2017-12-31 17:05] LABS: INR 1.2; PROTIME 11.8 Seconds (9.3-11.4)
[2017-12-31 17:07] LABS: ALBUMIN 2.8 g/dL (3.4-5.0); TOTAL BILIRUBIN 0.7 mg/dL (<0.1-1.0); TOTAL PROTEIN 7.3 g/dL (6.4-8.2); TROPONIN-I 0.06 ng/mL (<0.06)
[2017-12-31 17:08] LABS: ANISOCYTOSIS 1+; POLYCHROMASIA OCCASIONAL
[2017-12-31 17:43] VITALS: BP 115/73
[2017-12-31 17:52] VITALS: BP 117/72
[2017-12-31 18:51] LABS: URINE BILIRUBIN NEGATIVE (Negative); URINE BLOOD NEGATIVE (Negative); URINE CLARITY CLEAR; URINE COLOR YELLOW; URINE GLUCOSE-RANDOM* NEGATIVE (Negative); URINE KETONES NEGATIVE (Negative); URINE LEUKOCYTES-REFLEX NEGATIVE (Negative); URINE NITRITE-REFLEX NEGATIVE (Negative); URINE PROTEIN (DIPSTICK) NEGATIVE (Negative); URINE SPECIFIC GRAVITY 1.015 (1.005-1.035); URINE UROBILINOGEN 0.2 E.U./dl (0.2-1.0)
[2017-12-31 19:53] VITALS: BP 125/82
[2018-01-01 00:12] VITALS: BP 112/66
[2018-01-01 04:41] VITALS: BP 117/76
[2018-01-01 06:52] LABS: ALBUMIN 2.4 g/dL (3.4-5.0); CALCIUM 8.9 mg/dL (8.5-10.1); CREATININE 2.1 mg/dL (0.7-1.3); MAGNESIUM 2.4 mg/dL (1.8-2.4); PHOSPHORUS 3.8 mg/dL (2.5-4.9); POTASSIUM 3.4 mmol/L (3.5-5.1)
[2018-01-01 07:20] VITALS: BP 100/64
[2018-01-01 12:00] VITALS: BP 110/71
[2018-01-01 16:15] VITALS: BP 109/72
[2018-01-01 16:47] LABS: BE(vivo) 0.4 mmol/L (-2 to +3); HCO3 24.3 mmol/L (22.0-26.0); PCO2 36.4 mmHg (35.0-45.0); PO2 77.2 mmHg (80.0-100.0); pH 7.442 (7.360-7.450); sO2 95.9 % (92.0-98.0)
[2018-01-01 19:30] VITALS: BP 121/83
[2018-01-02 04:00] LABS: ALBUMIN 1.5 g/dL (3.4-5.0); CALCIUM 8.4 mg/dL (8.5-10.1); CREATININE 2.3 mg/dL (0.7-1.3); MAGNESIUM 2.2 mg/dL (1.8-2.4); PHOSPHORUS 3.8 mg/dL (2.5-4.9); POTASSIUM 4.3 mmol/L (3.5-5.1); TROPONIN-I 0.09 ng/mL (<0.06)
[2018-01-02 06:31] VITALS: BP 104/69
[2018-01-02 07:45] VITALS: BP 107/66
[2018-01-02 12:00] VITALS: BP 110/68
[2018-01-02 15:55] VITALS: BP 113/69
[2018-01-02 20:54] VITALS: BP 100/55
[2018-01-03] VITALS (7 sets, daily range): BP systolic 99–152; BP diastolic 58–72
[2018-01-03 03:04] LABS: ALBUMIN 2.4 g/dL (3.4-5.0); CALCIUM 8.9 mg/dL (8.5-10.1); CREATININE 2.5 mg/dL (0.7-1.3); PHOSPHORUS 3.8 mg/dL (2.5-4.9); POTASSIUM 3.9 mmol/L (3.5-5.1)
[2018-01-04 03:36] LABS: ALBUMIN 2.2 g/dL (3.4-5.0); CALCIUM 8.6 mg/dL (8.5-10.1); CREATININE 2.4 mg/dL (0.7-1.3); PHOSPHORUS 3.4 mg/dL (2.5-4.9); POTASSIUM 3.5 mmol/L (3.5-5.1)
[2018-01-04 05:51] VITALS: BP 99/59
[2018-01-04 08:01] VITALS: BP 111/61
[2018-01-04 11:26] VITALS: BP 108/58
[2018-01-04 15:48] VITALS: BP 104/65
[2018-01-04 20:35] VITALS: BP 130/62
[2018-01-05] VITALS (8 sets, daily range): BP systolic 94–150; BP diastolic 54–69
[2018-01-05 03:33] LABS: ALBUMIN 2.4 g/dL (3.4-5.0); CALCIUM 8.7 mg/dL (8.5-10.1); CREATININE 2.4 mg/dL (0.7-1.3); PHOSPHORUS 2.6 mg/dL (2.5-4.9); POTASSIUM 3.9 mmol/L (3.5-5.1)
[2018-01-05] MEDS ORDERED: DEPAKOTE 250MG250 M1 PO (08:41)
[2018-01-05] MEDS ORDERED: ASPIR 8181 MG PO (08:41)
[2018-01-05] MEDS ORDERED: ALLOPURINOL 10100 M1 PO (08:41)
[2018-01-05] MEDS ORDERED: DEMADEX20 MG PO (08:42)
== END 2018-01-05 19:30 | disposition home health service (06) | DRG 291 ==
LOC: ER 15:51 → 2N 17:26 → EROBS 17:26 → 2N 18:37
PROVIDERS: Hospitalist; Internal Medicine; Internal Medicine Nephrology; Physician Assistant
DX: I13.0 Hypertensive heart and chronic kidney disease with heart failure and stage 1 through stage 4 chronic kidney disease, or unspecified chronic kidney disease (principal); I50.23 Acute on chronic systolic (congestive) heart failure; E43 Unspecified severe protein-calorie malnutrition; J96.01 Acute respiratory failure with hypoxia; N18.4 Chronic kidney disease, stage 4 (severe); I47.2 Ventricular tachycardia; F03.91 Unspecified dementia, unspecified severity, with behavioral disturbance; M10.9 Gout, unspecified; I42.9 Cardiomyopathy, unspecified; E87.6 Hypokalemia; E78.5 Hyperlipidemia, unspecified; M62.84 Sarcopenia; G47.00 Insomnia, unspecified; I89.0 Lymphedema, not elsewhere classified; Z88.8 Allergy status to other drugs, medicaments and biological substances; Z79.899 Other long term (current) drug therapy; Z95.0 Presence of cardiac pacemaker; Z87.891 Personal history of nicotine dependence; Z79.82 Long term (current) use of aspirin; Z82.49 Family history of ischemic heart disease and other diseases of the circulatory system; Z68.26 Body mass index [BMI] 26.0-26.9, adult
CPT/HCPCS: 10081

== ENCOUNTER 2018-01-31 17:22 | Inpatient (IN) | payer OTHER ==
[~2018-01-31] VITALS: Ht 177.8 cm; Wt 97.7 kg
--- NOTE | ~2018-01-31 | HC ---
[facility] [place] [address] CONSULTATION Name: TANK COX Dorcas Room #: 209-P ADM IN ..#: [id number] Admission: 01/31/18 Attend Phys: Jeff Costa MD Discharge: Date of : 41 Report #: [id number] THIS REPORT FOR: //name// CC: Dwaine Costa DATE OF SERVICE: 02/01/2018 CHIEF COMPLAINT: Lower extremity lymphedema. HISTORY OF PRESENT ILLNESS: This is a 77-year-old male patient with whom I am familiar from previous hospitalization. The patient is also followed in the outpatient Wound Care Center here at [facility]. He was last hospitalized in December. He presents now with swelling and shortness of breath. He has a history of congestive heart failure and bilateral lower extremity edema. He has been using bilateral lower extremity compression bandages 3 days a week with home health nursing to keep the swelling intact. He denies significant pain at this time in his legs. MEDICATIONS: Include amiodarone, ammonium lactate, cefuroxime, heparin, nitroglycerin, polyethylene glycol, spironolactone and torsemide. ALLERGIES: NOY INHIBITORS AND CARVEDILOL. FAMILY HISTORY: Noncontributory. SOCIAL HISTORY: Positive for cigarettes in the past. Negative for alcohol use. REVIEW OF SYSTEMS: CONSTITUTIONAL: The patient denies fever, chills or weight loss. NEUROLOGICAL: The patient denies focal weakness, numbness or tingling. EYES: The patient denies any visual changes, redness or drainage. ENT: The patient denies earache, nasal drainage or sore throat. CARDIOVASCULAR: The patient denies chest pain, palpitations or diaphoresis. PULMONARY: The patient denies any cough. He does complain of mild shortness of breath. Denies hemoptysis. GASTROINTESTINAL: The patient denies nausea, vomiting, diarrhea or abdominal pain. ORTHOPEDIC: The patient has lower extremities wrapped. He denies any pain in this area. Other systems in a 14-point review of systems are negative. PHYSICAL EXAMINATION: VITAL SIGNS: At this time include pulse 62, respiratory rate 22, blood pressure 123/71 and temperature 98.0. GENERAL: This is a chronically ill-appearing male patient who appears to be in no distress. [address] [address] CONSULTATION Name: TANK COX Room #: 209-P [facility] IN M.R.#: [id number] Admission: 01/31/18 Attend Phys: Jeff Costa MD Discharge: Date of : 42 Report #: [id number] HEENT: Head normocephalic. Nose and throat are clear. NECK: Supple. LUNGS: Diminished. HEART: Regular rhythm. ABDOMEN: Soft, nontender. RECTAL: Deferred. EXTREMITIES: Lower extremities shows bilateral edema. Extremities show mild erythema and swelling. Some remnants of ulcerations on the right leg are seen. Nothing is open at this time. CLINICAL IMPRESSION: 1. Plsbv-if-hjlrisa systolic heart failure. 2. Severe nonischemic cardiomyopathy. 3. History of lower extremity lymphedema. 4. Dementia. RECOMMENDATIONS: At this point in time, we will continue with multi-layer wrappings while here, to be changed every 2-3 days and as needed. The patient is agreeable to this. He will need ongoing nutritional support. We will recommend continuing the current medications. I appreciate being asked to see him again in consultation. <ELECTRONICALLY SIGNED> By: Talat Ford MD 02/02/181951 21 03 Talat Ford MD /nt
--- NOTE | ~2018-01-31 | EKG ---
[address] [address] ELECTROCARDIOGRAM REPORT Name: TANK COX Dorcas Room #: 209-P ADM IN M.R.#: [id number] Admission: 01/31/18 Attend Phys: Jeff Costa MD Discharge: Date of : 42 Report #: [id number] THIS REPORT FOR: //name// [facility] ED Test Date: 2018-01-31 Test Time: 18:07:51 Pat Name: TANK COX Department: Room: 209 Gender: M Apparel Cutter: as : 1940 Requested By: Deanna Bliss Order Number: [id number] MD: Srinivas Walker Measurements Intervals [place] Rate: 67 P: -7 SC: 166 QRS: 193 QRSD: 226 T: 119 QT: 631 QTc: 667 Interpretive Statements A-V dual-paced rhythm with some inhibition No further analysis attempted due to paced rhythm Compared to ECG 12/31/2017 16:04:50 Atrial-sensed ventricular-paced complex(es) or rhythm no longer present Electronically Signed On 02-05-2018 14:31:44 CDT by Srinivas Walker [email or web address] <ELECTRONICALLY SIGNED> By: Srinivas Walker MD 02/05/18 1431 1807 1807 Srinivas Walker MD /EPI
--- NOTE | ~2018-01-31 | HC ---
[facility] [place] [address] CONSULTATION Name: TANK COX Room #: 209-P [facility] IN ..#: [id number] Admission: 01/31/18 Attend Phys: Jeff Costa MD Discharge: Date of : 42 Report #: [id number] THIS REPORT FOR: //name// CC: Dwaine Costa DATE OF SERVICE: 02/02/2018 HISTORY OF PRESENT ILLNESS: This is a 77-year-old male patient who was seen by me first time on 02/01/2018. I have asked them to look for his dictation, but nobody can find his dictation, so I am redictating it. I had initially talked to the patient himself and subsequently was able to reach the patient's and talked to her. The patient's neurological consultation is requested to evaluate the patient for his memory disturbances. He has numerous other problems going on and I will confine myself to the memory problems. The patient states that there is nothing wrong with his memory. indicates that he has a significant memory problem because he is a very intelligent in the baseline, but then sometime he cannot figure out how to operate a remote control for the TV. She also does not mention what brings it on and whether it happened more commonly when he is having more acute sickness or not. She indicates that he always knows what month it is and usually has a reasonably good memory, otherwise. REVIEW OF SYSTEMS: Indicate that this patient has multiple problems. He has a pretty significant edema and he is being seen by Cardiology. He has severe cardiomyopathy. He has renal failure and he has a pretty significant lower extremity edema. He has both chronic renal problem and at one time was on dialysis. He had shortness of breath and that was one of his presenting symptoms. He also has sacral edema. Record indicates that his compliance with the diet, etc., is also not very good. He does have a history of wound problem. I reviewed his records and he has a history of bilateral pleural effusions and rotator cuff dysfunction. A 14-point review of system was carried out and it is pretty extensive and other people's records were also reviewed. PAST MEDICAL HISTORY: Negative for stroke according to him. FAMILY HISTORY: According to him is negative for congenital dementia. SOCIAL HISTORY: He is and he and his have very different opinion about his memory situation. PHYSICAL EXAMINATION: Indicate that he is alert. He is responsive. He can follow simple commands. He is oriented. He knows who the president is. His speech is unusual, but that is at his baseline. Cranial nerve examination [address] [address] CONSULTATION Name: BROOK[place]ANK Room #: 209-P [facility] IN ..#: [id number] Admission: 01/31/18 Attend Phys: Jeff Costa MD Discharge: Date of : 42 Report #: [id number] mostly looks unremarkable. He moves all four extremities. His reflexes are diminished. His tone looks symmetrical. He is moderately built individual. He has edema. His pulses are difficult to feel. He has cardiomyopathy. He has shortness of breath. His last blood pressure was 117/66, respirations 18, pulse is 64, temperature is 97.5. LABORATORY DATA: His hemoglobin is 10.5. He did have a CT scan of the head last month and that did not show any acute abnormality. IMPRESSION: Difficult to evaluate this patient because he does not believe anything is wrong with him and the thinks he has memory disturbances. RECOMMENDATION: This patient needs further workup. The workup should include neuropsychological testing to document cognitive deficits as well as further testing like EEG, etc. I think it may be desirable to do a carotid Doppler also. That will be the initial workup, but then subsequent workup may have to be done. The patient does not want any further testing. I do not know what we can do in that regard. I will approach the again, but if he does not want any further workup, firstly he is competent to make his decision and he can refuse that in my view and the second thing is, I am not sure how can we force him to have the workup done. We might do a few blood workups, which we can add to his blood workup, but doing any other neurological workup will be difficult in this patient. Thank you very much for this referral. <ELECTRONICALLY SIGNED> By: Aston Foote MD 02/04/18 0851 0420 0447 Aston Foote MD /nt
--- NOTE | ~2018-01-31 | HC ---
[facility] [place] [address] CONSULTATION Name: TANK COX Dorcas Room #: 209-P [facility] IN ..#: [id number] Admission: 01/31/18 Attend Phys: Jeff Costa MD Discharge: Date of : 42 Report #: [id number] THIS REPORT FOR: //name// CC: Dwaine Costa DATE OF SERVICE: 02/09/2018 Palliative Care Consultation REQUESTING PHYSICIAN: Dr. Jose. HISTORY OF PRESENT ILLNESS: Palliative care consultation related to acute on chronic combined heart failure. HISTORY OF PRESENT ILLNESS: The patient is a 77-year-old male who presented initially to [facility] on 01/31 with worsening lower extremity edema, scrotal edema, pain related to this. The patient was discovered to have acute on chronic combined congestive heart failure. The patient had a significant decline in his overall functional ability and multiple falls at home per his spouse. Additionally, he has had a significant memory concerns with memory loss, worsening over the past year with a known history of dementia. The patient has been aggressive at times with his spouse. He feels that she is no longer able to care for him. The patient does answer questions appropriately, although he is not able to remember certain lines of questioning and information provided to him and formulate this into a distinct response. The patient has difficulty understanding his overall diagnosis at this time, but he does deny significant pain. He denies significant air hunger. Denies nausea or constipation. PAST MEDICAL HISTORY: Chronic combined heart failure, EF 25%, hypertension, hyperlipidemia, syncope, history of chronic kidney disease stage 4, gout. PAST SURGICAL HISTORY: AICD and pacemaker placement. MEDICATIONS: Aspirin, Depakote, allopurinol, torsemide, Aldactone every noon. ALLERGIES: NOY INHIBITORS, COREG. FAMILY HISTORY: Noncontributory. SOCIAL HISTORY: Spouse is present, as well as a son and daughter today in my interview, was previously a full code, but we are now changing to DNR status. Family has signed outside the hospital DNR today. We did discuss with the patient today DNR status and what will be involved in CPR and also with [facility] [address] [place] [address] CONSULTATION Name: TANK COX Room #: 209-P [facility] IN ..#: [id number] Admission: 01/31/18 Attend Phys: Jeff Costa MD Discharge: Date of : 42 Report #: [id number] intubation with mechanical ventilation. He is unable to express what these things were that I discussed with him and does not have capacity for this decision making. REVIEW OF SYSTEMS: GENERAL: Does report significant weight gain, but denies fevers or chills. RESPIRATORY: Does report dyspnea with any movement, although he denies at rest. He does have periods of time where he has dyspnea at rest. ABDOMEN: Denies nausea, vomiting, constipation or diarrhea. EXTREMITIES: Does have diffuse edema, especially in the lower extremities bilaterally. PHYSICAL EXAMINATION: VITAL SIGNS: Temperature 36.7, pulse 61, respirations 16, blood pressure 88/51. At times over 100/60s, 97% on nasal cannula. GENERAL: The patient is alert, though he is not oriented to place or time. He is oriented to self. He does have difficulty with remembering any aspects of his hospitalization. HEENT: Extraocular muscles appeared to be intact. Normocephalic and atraumatic. CARDIOVASCULAR: Regular rate and rhythm without murmur. LUNGS: Appear to be clear to auscultation bilaterally, although he does have some minor rales bibasilar. ABDOMEN: Soft, nontender to palpation, but diminished bowel sounds noted. LABORATORY DATA: Creatinine 2.7 on 01/31. ASSESSMENT AND PLAN: 1. Acute on chronic combined congestive heart failure. Discussed extensively. I spent approximately 40 minutes on discussion of advanced directive with regards to code status. He was unable to provide capacity for decision making. Family desires him to have DNR and DNI code status. I have changes this at this time. He has signed outside hospital DNR. Did discuss the possibility of inpatient hospice given his uncompensated heart failure and the need for IV Lasix. We are trying to arrange for transfer to [facility], although I perceive alternative is not available for the patient. I do believe he qualifies for inpatient hospice needing the management that he will, which could include continuing Lasix drip, but also the addition of dobutamine for the patient's dyspnea and exercise intolerance. 2. Hypoxic respiratory failure. At this time, I appreciate primary care team's recommendations. I do believe this is likely to worsen, especially given this and his history of dysphagia. He refuses esophagogastroduodenoscopy at this time. The patient is likely to have aspiration pneumonia at some future date. Again, the patient's family is amenable to hospice care, especially inpatient hospice. We will pursue this, as the patient is requiring IV medications on a consistent basis for comfort. We have switched a couple of medications to oral [facility] [address] [place] [address] CONSULTATION Name: TANK COX Room #: 209-P ADM IN .Katia.#: [id number] Admission: 01/31/18 Attend Phys: Jeff Costa MD Discharge: Date of : 42 Report #: [id number] or stopped certain medications given lack of benefit at this current point in time. 3. Chronic kidney disease 4. The patient's family has been contacted with Dr. Carl. At this current point, he does not feel that he would be able to tolerate hemodialysis sufficiently. I agree with this report and do feel that that would be an unnecessary risk given his overall decompensated status despite the fact that this would likely improve his fluid status. Again, I believe this patient would benefit greatly from hospice care. We are currently pursuing inpatient hospice care if possible or if accepted, that did discuss this with family. At this time, we are amenable. By: [id number] Julien Rubin DO /nt
[~2018-01-31 17:22] MED LIST changes: +ASPIR 8181 MG PO; +DEPAKOTE 250MG250 M1 PO
[2018-01-31 17:31] VITALS: BP 126/67
[2018-01-31 17:59] LABS: ABSOLUTE NEUTROPHILS 4.9 thou/uL (1.4-8.2); EOSINOPHILS 1.3 % (0.0-3.0); HEMATOCRIT 31.8 % (42.0-52.0); HEMOGLOBIN 10.5 gm/dL (14.0-18.0); LYMPHOCYTES 7.6 % (24.0-44.0); MCH 30.8 pg (26.0-34.0); MCHC 32.9 g/dL (28.0-37.0); MCV 93.5 fL (80.0-100.0); MONOCYTES 9.4 % (1.0-8.0); PLATELET COUNT 226 thou/uL (150-400); POLYS 80.7 % (36.0-66.0); RDW 20.7 % (10.5-14.5); WBC 6.1 thou/uL (4.0-11.0)
[2018-01-31 18:09] LABS: CREATININE 2.7 mg/dL (0.7-1.3); POTASSIUM 3.6 mmol/L (3.5-5.1)
[2018-01-31 18:18] LABS: ALBUMIN 2.7 g/dL (3.4-5.0); TOTAL BILIRUBIN 0.8 mg/dL (<0.1-1.0); TROPONIN-I 0.07 ng/mL (<0.06)
[2018-01-31 18:32] LABS: ANISOCYTOSIS 2+
[2018-01-31 19:13] LABS: URINE BILIRUBIN NEGATIVE (Negative); URINE BLOOD NEGATIVE (Negative); URINE CLARITY CLEAR; URINE COLOR YELLOW; URINE GLUCOSE-RANDOM* NEGATIVE (Negative); URINE KETONES NEGATIVE (Negative); URINE LEUKOCYTES-REFLEX NEGATIVE (Negative); URINE NITRITE-REFLEX NEGATIVE (Negative); URINE PROTEIN (DIPSTICK) NEGATIVE (Negative); URINE SPECIFIC GRAVITY 1.015 (1.005-1.035); URINE UROBILINOGEN 0.2 E.U./dl (0.2-1.0)
[2018-01-31 20:00] VITALS: BP 105/60
[2018-01-31 20:20] VITALS: BP 108/65
[2018-01-31 20:59] VITALS: BP 115/76
[2018-02-01 00:13] VITALS: BP 101/60
[2018-02-01 05:49] LABS: CREATININE 2.4 mg/dL (0.7-1.3); POTASSIUM 3.7 mmol/L (3.5-5.1); TROPONIN-I 0.08 ng/mL (<0.06)
[2018-02-01 05:51] VITALS: BP 102/67
[2018-02-01 05:53] LABS: HEMATOCRIT 31.5 % (42.0-52.0); HEMOGLOBIN 10.3 gm/dL (14.0-18.0); MCH 30.5 pg (26.0-34.0); MCHC 32.7 g/dL (28.0-37.0); MCV 93.2 fL (80.0-100.0); RBC 3.38 mil/uL (4.50-6.00); RDW 20.9 % (10.5-14.5); WBC 5.5 thou/uL (4.0-11.0)
[2018-02-01 05:55] LABS: CALCIUM 8.6 mg/dL (8.5-10.1)
[2018-02-01 08:25] VITALS: BP 120/72
[2018-02-01 11:35] VITALS: BP 111/69
[2018-02-01 15:20] VITALS: BP 123/71
[2018-02-02 01:02] VITALS: BP 106/73
[2018-02-02 04:12] LABS: ALBUMIN 2.6 g/dL (3.4-5.0); CREATININE 2.6 mg/dL (0.7-1.3)
[2018-02-02 04:40] VITALS: BP 100/59
[2018-02-02 05:11] LABS: HEMATOCRIT 31.7 % (42.0-52.0); HEMOGLOBIN 10.5 gm/dL (14.0-18.0); MCHC 33.2 g/dL (28.0-37.0); MCV 93.3 fL (80.0-100.0); RBC 3.4 mil/uL (4.50-6.00); RDW 20.8 % (10.5-14.5); WBC 6.5 thou/uL (4.0-11.0)
[2018-02-02 08:05] VITALS: BP 100/56
[2018-02-02 11:45] VITALS: BP 107/48
[2018-02-02 19:41] VITALS: BP 98/62
[2018-02-02 23:56] VITALS: BP 98/62
[2018-02-03 03:47] VITALS: BP 117/66
[2018-02-03 04:15] LABS: ALBUMIN 2.8 g/dL (3.4-5.0); CALCIUM 9.3 mg/dL (8.5-10.1); CREATININE 2.6 mg/dL (0.7-1.3); PHOSPHORUS 4.2 mg/dL (2.5-4.9); POTASSIUM 4.1 mmol/L (3.5-5.1)
[2018-02-03 08:20] VITALS: BP 98/62
[2018-02-03 12:07] VITALS: BP 104/59
[2018-02-03 17:10] VITALS: BP 94/64
[2018-02-03 21:20] VITALS: BP 109/65
[2018-02-04 02:30] VITALS: BP 117/64
[2018-02-04 03:59] LABS: ALBUMIN 2.6 g/dL (3.4-5.0); CALCIUM 8.9 mg/dL (8.5-10.1); CREATININE 2.8 mg/dL (0.7-1.3); PHOSPHORUS 4.9 mg/dL (2.5-4.9); POTASSIUM 4.1 mmol/L (3.5-5.1)
[2018-02-04 08:30] VITALS: BP 105/63
[2018-02-04 11:53] VITALS: BP 108/70
[2018-02-04 16:03] VITALS: BP 105/63
[2018-02-04 19:50] VITALS: BP 109/63
[2018-02-05 04:50] LABS: ALBUMIN 2.6 g/dL (3.4-5.0); PHOSPHORUS 5.1 mg/dL (2.5-4.9); POTASSIUM 3.5 mmol/L (3.5-5.1)
[2018-02-05 04:58] VITALS: BP 115/52
[2018-02-05 08:04] VITALS: BP 97/59
[2018-02-05 12:27] VITALS: BP 105/61
[2018-02-05 16:19] VITALS: BP 91/48
[2018-02-05 20:16] VITALS: BP 96/63
[2018-02-05 22:45] VITALS: BP 113/63
[2018-02-06 04:45] VITALS: BP 100/59
[2018-02-06 06:06] LABS: ALBUMIN 2.4 g/dL (3.4-5.0); CREATININE 2.9 mg/dL (0.7-1.3); PHOSPHORUS 4.9 mg/dL (2.5-4.9); POTASSIUM 3.2 mmol/L (3.5-5.1)
[2018-02-06 07:54] VITALS: BP 92/55
[2018-02-06 11:15] VITALS: BP 107/60
[2018-02-06 16:42] VITALS: BP 126/98
[2018-02-06 19:33] VITALS: BP 113/67
[2018-02-07 04:09] VITALS: BP 124/67
[2018-02-07 04:51] LABS: ALBUMIN 2.6 g/dL (3.4-5.0); CALCIUM 8.9 mg/dL (8.5-10.1); CREATININE 2.8 mg/dL (0.7-1.3); PHOSPHORUS 4.6 mg/dL (2.5-4.9)
[2018-02-07 05:16] LABS: POTASSIUM 2.9 mmol/L (3.5-5.1)
[2018-02-07 07:57] VITALS: BP 105/65
[2018-02-07 11:33] VITALS: BP 103/67
[2018-02-07 15:54] VITALS: BP 110/66
[2018-02-07 19:54] VITALS: BP 101/48
[2018-02-08 04:34] LABS: HEMATOCRIT 32.4 % (42.0-52.0); HEMOGLOBIN 10.3 gm/dL (14.0-18.0); MCH 30.1 pg (26.0-34.0); MCHC 31.8 g/dL (28.0-37.0); MCV 94.6 fL (80.0-100.0); RBC 3.42 mil/uL (4.50-6.00); RDW 20.8 % (10.5-14.5); WBC 8.1 thou/uL (4.0-11.0)
[2018-02-08 04:35] LABS: CALCIUM 9.1 mg/dL (8.5-10.1); CREATININE 3.3 mg/dL (0.7-1.3); MAGNESIUM 2.6 mg/dL (1.8-2.4); POTASSIUM 3.8 mmol/L (3.5-5.1)
[2018-02-08 04:40] LABS: ALBUMIN 2.6 g/dL (3.4-5.0); CALCIUM 9.3 mg/dL (8.5-10.1); CREATININE 3.2 mg/dL (0.7-1.3); PHOSPHORUS 5.3 mg/dL (2.5-4.9); POTASSIUM 3.8 mmol/L (3.5-5.1)
[2018-02-08 05:09] VITALS: BP 105/61
[2018-02-08 07:29] VITALS: BP 111/66
[2018-02-08 12:08] VITALS: BP 120/68
[2018-02-08 15:17] VITALS: BP 93/59
[2018-02-08 16:47] LABS: BE(vivo) 3.4 mmol/L (-2 to +3); HCO3 29.7 mmol/L (22.0-26.0); PCO2 53.7 mmHg (35.0-45.0); PO2 79.7 mmHg (80.0-100.0); pH 7.361 (7.360-7.450); sO2 95.2 % (92.0-98.0)
[2018-02-08 19:55] VITALS: BP 102/52
[2018-02-09] VITALS (8 sets, daily range): BP systolic 88–122; BP diastolic 48–69
[2018-02-09 04:20] LABS: ALBUMIN 2.6 g/dL (3.4-5.0); CALCIUM 8.9 mg/dL (8.5-10.1); CREATININE 3.3 mg/dL (0.7-1.3); PHOSPHORUS 5.6 mg/dL (2.5-4.9); POTASSIUM 3.5 mmol/L (3.5-5.1)
[2018-02-10 04:59] VITALS: BP 101/61; BP 138/96
[2018-02-10 07:56] VITALS: BP 105/63
[2018-02-10 11:07] VITALS: BP 105/53
[2018-02-10] MEDS ORDERED: IPRAT-ALBUT 0.5-3 ML INH (12:33)
[2018-02-10] MEDS ORDERED: ATIVAN0.5 MG SUBLING (12:33)
== END 2018-02-10 15:21 | disposition hospice, inpatient (51) | DRG 682 ==
LOC: ER 17:22 → 2N 19:40 → EROBS 19:40 → 2N 20:22
PROVIDERS: Hospitalist; Internal Medicine; Internal Medicine Nephrology; Nurse Practitioner Acute Care; Nurse Practitioner Family
DX: N17.9 Acute kidney failure, unspecified (principal); I50.43 Acute on chronic combined systolic (congestive) and diastolic (congestive) heart failure; J96.91 Respiratory failure, unspecified with hypoxia; E43 Unspecified severe protein-calorie malnutrition; I42.9 Cardiomyopathy, unspecified; I13.0 Hypertensive heart and chronic kidney disease with heart failure and stage 1 through stage 4 chronic kidney disease, or unspecified chronic kidney disease; M10.9 Gout, unspecified; I87.2 Venous insufficiency (chronic) (peripheral); R41.89 Other symptoms and signs involving cognitive functions and awareness; E87.70 Fluid overload, unspecified; I95.9 Hypotension, unspecified; E87.6 Hypokalemia; N50.89 Other specified disorders of the male genital organs; F03.90 Unspecified dementia, unspecified severity, without behavioral disturbance, psychotic disturbance, mood disturbance, and anxiety; E78.5 Hyperlipidemia, unspecified; N18.4 Chronic kidney disease, stage 4 (severe); M19.90 Unspecified osteoarthritis, unspecified site; M62.84 Sarcopenia; Z95.0 Presence of cardiac pacemaker; Z88.8 Allergy status to other drugs, medicaments and biological substances; Z87.891 Personal history of nicotine dependence; Z79.82 Long term (current) use of aspirin; Z79.899 Other long term (current) drug therapy; Z83.3 Family history of diabetes mellitus; Z82.49 Family history of ischemic heart disease and other diseases of the circulatory system; Z91.11 Patient's noncompliance with dietary regimen; Z68.30 Body mass index [BMI] 30.0-30.9, adult
CPT/HCPCS: 10081